=== PATIENT | female | born 1970 | race Caucasian/White ===

== ENCOUNTER → 2017-12-10 | Outpatient (CLI) | payer BC ==
[~2017-12-10] MED LIST: BUPR300T54 PO; CLON0.5T12 PO; ESCI10TA54 PO; HYDR12.54 PO; LEVO88TA7 PO; OXYB5TAB PO
== END | disposition home or self-care (01) ==
LOC: RAH 10:07
PROVIDERS: ATTEND Physical Medicine & Rehabilitation
DX: M47.894 Other spondylosis, thoracic region (principal); M47.896 Other spondylosis, lumbar region; Z90.49 Acquired absence of other specified parts of digestive tract
CPT/HCPCS: 72072; 72100

== ENCOUNTER → 2018-07-31 | Outpatient (CLI) | payer BC | END | disposition home or self-care (01) | LOC: RAH 12:44 | PROVIDERS: ATTEND Physical Medicine & Rehabilitation | DX: M47.26 Other spondylosis with radiculopathy, lumbar region (principal); M51.16 Intervertebral disc disorders with radiculopathy, lumbar region | CPT/HCPCS: 72148 ==

== ENCOUNTER → 2019-05-14 | Outpatient (CLI) | payer BC ==
[~2019-05-14] MED LIST changes: -CLON0.5T12 PO; +CLON0.5T4 PO; -OXYB5TAB PO; +OXYB5TAB4 PO
== END | disposition home or self-care (01) ==
LOC: SHCH 08:50
PROVIDERS: ATTEND Internal Medicine Cardiovascular Disease
DX: I87.2 Venous insufficiency (chronic) (peripheral) (principal)
CPT/HCPCS: 93970

== ENCOUNTER → 2019-09-20 | Outpatient (CLI) | payer BC ==
[~2019-09-20] MED LIST changes: +BUPR-317 PO; -BUPR300T54 PO; +OXYB-66 PO; -OXYB5TAB4 PO
== END | disposition home or self-care (01) ==
LOC: RAH 12:44
PROVIDERS: ATTEND Physical Medicine & Rehabilitation
DX: M47.816 Spondylosis without myelopathy or radiculopathy, lumbar region (principal); M51.26 Other intervertebral disc displacement, lumbar region; M48.061 Spinal stenosis, lumbar region without neurogenic claudication
CPT/HCPCS: 72148

== ENCOUNTER → 2020-11-10 | Outpatient (CLI) | payer BC ==
[~2020-11-10] MED LIST changes: +ESCI-8 PO; -ESCI10TA54 PO
== END | disposition home or self-care (01) ==
LOC: RAH 11:45
PROVIDERS: ATTEND Physical Medicine & Rehabilitation
DX: M25.552 Pain in left hip (principal)
CPT/HCPCS: 73502

== ENCOUNTER → 2020-12-15 | Outpatient (CLI) | payer BC | END | disposition home or self-care (01) | LOC: RAH 08:52 | PROVIDERS: ATTEND Physical Medicine & Rehabilitation | DX: M51.36 Other intervertebral disc degeneration, lumbar region (principal); M48.07 Spinal stenosis, lumbosacral region | CPT/HCPCS: 72100 ==

== ENCOUNTER → 2021-01-17 | Outpatient (CLI) | payer BC | END | disposition home or self-care (01) | LOC: RAH 07:47 | PROVIDERS: ATTEND Physical Medicine & Rehabilitation | DX: M47.26 Other spondylosis with radiculopathy, lumbar region (principal) | CPT/HCPCS: 72148 ==

== ENCOUNTER → 2021-01-23 | Outpatient (CLI) | payer BC | END | disposition home or self-care (01) | LOC: RAH 07:33 | PROVIDERS: ATTEND Physical Medicine & Rehabilitation | DX: M51.36 Other intervertebral disc degeneration, lumbar region (principal); M48.061 Spinal stenosis, lumbar region without neurogenic claudication | CPT/HCPCS: 72114 ==